=== PATIENT | female | born 2000 | race Caucasian/White ===

== ENCOUNTER 2024-03-14 17:32 | Emergency (ER) | payer OTHER, SELFPAY ==
[2024-03-14 17:40] VITALS: BP 130/54; PULSE 99; RESP 20; TEMP 37.5; O2SAT 100
--- NOTE | 2024-03-14 18:03 | ED.URI ---
HPI - URI/Sore Throat General Chief Complaint: Upper Respiratory Infection Stated Complaint: congestion/head/ears/throat Time Seen by Provider: 03/14/24 18:00 Source: patient, RN notes reviewed and old records reviewed Mode of arrival: ambulatory Limitations: no limitations History of Present Illness HPI Narrative: 23 year old female who presents to [facility] care with complaints of sore throat, congestion headache,body aches, ear pain and fullness to ears for the past 2 days. Patient reports that she took one dose of some left over amoxicillin and has been taking Sudafed. Patient reports that she has not had a known fever. MD elicited complaint: sore throat, rhinorrhea, nasal congestion and other (ear pain and fullness, headache, body aches reported.) Onset (ago): day(s) (2) Pain scale (0-10): 6 Able to tolerate fluids by mouth: Yes Exacerbating factors: swallowing Treatments prior to arrival: other (Sudafed and one dose of amoxicillin) Related Data Allergies Allergy/AdvReac Type Severity Reaction Status Date / Time No Known Allergies Allergy Verified 03/14/24 18:00 Review of Systems Review of Systems: CONSTITUTIONAL:Reports malaise,no chills, sweats, or known fever. EYES: Denies visual changes, redness, or discharge. ENT: Reports rhinorrhea, congestion, sinus pain, otalgia and sore throat. CARDIOVASCULAR: Denies chest pain, palpitations, or edema. RESPIRATORY: Reports no cough.? Denies dyspnea. GASTROINTESTINAL: Denies abdominal pain, nausea, vomiting, diarrhea SKIN: Denies rash or itching. MUSCULOSKELETAL: Reports myalgia. NEUROLOGIC: Reports headache. All systems reviewed & are unremarkable except as noted in HPI and below PMFSH Social History Social History (Updated 03/16/24 @ 09:12 by Lilli Davies NP) Smoking status: Current every day smoker Tobacco type: e-cigarettes/vaping Alcohol intake: current Alcohol use details: social Substance use type: does not use Living arrangements: with family Gender identity (if verbalized by the patient): Female Comments At time of signature, agree with nursing past medical, surgical, social and family history. There is no relevant family history pertinent to the presenting complaint Exam Narrative: GENERAL: Well-appearing, well-nourished, and in no acute distress. HEAD: Normocephalic EYES: PERRLA, conjunctivae clear ENT: Nares clear, turbinates edematous and erythematous, clear discharge, sinus pain and frontal headache. Mucous membranes moist. TM pearly lujan with dull light reflex bilaterally; no tragal tenderness. Oropharynx erythematous without lesions. Tonsils enlarged and without exudate, no drooling, no hoarseness, no trismus, uvula midline.post nasal drainage NECK: Supple. No lymphadenopathy CHEST: Clear to auscultation, breath sounds equal. No wheezing, rhonchi, rales, or stridor. No respiratory distress, speaks in full sentences.SAO2 100% on room air HEART: Regular rate and rhythm. No murmur heard. SKIN: Warm, dry, no rash. NEURO: Alert and oriented x3. PSYCH: Normal mood and affect Course Course Emergency Course: Patient is aware of diagnosis, understands and agrees to treatment plan.? Anticipatory guidance given.? Patient agrees to follow-up as directed and is aware of reasons to seek care at the emergency department. Portions of this record may have been created with voice recognition software Level of Care: Express Care Visit Vital Signs Vital signs: Vital Signs Temperature 37.5 C 03/14/24 17:40 Pulse Rate 99 03/14/24 17:40 Respiratory Rate 20 03/14/24 17:40 Blood Pressure 130/54 L 03/14/24 17:40 Pulse Oximetry 100 03/14/24 17:40 Oxygen Delivery Room Air 03/14/24 17:40 Temperature 37.5 C 03/14/24 17:40 Pulse Rate 99 03/14/24 17:40 Respiratory Rate 20 03/14/24 17:40 Blood Pressure 130/54 L 03/14/24 17:40 Pulse Oximetry 100 03/14/24 17:40 Oxygen Delivery Room
== END 2024-03-14 18:33 | disposition home or self-care (01) ==
PROVIDERS: Emergency Provider Registered Nurse
DX: J06.9 Acute upper respiratory infection, unspecified (principal); J02.9 Acute pharyngitis, unspecified; F17.290 Nicotine dependence, other tobacco product, uncomplicated
CPT/HCPCS: 87081; 87880; 99213; G0463